=== PATIENT | male | born 1970 | race Caucasian/White ===

== ENCOUNTER 2021-10-30 06:55 | Emergency (ER) | payer MEDICARE, SELFPAY ==
[2021-10-30 06:57] VITALS: BP 149/107; PULSE 100; RESP 22; TEMP 36.7; O2SAT 97; BMI 41.1
[2021-10-30 07:08] VITALS: BP 149/107; PULSE 99; O2SAT 96
[2021-10-30 07:20] VITALS: BMI 41.1
[2021-10-30 07:30] VITALS: BP 137/96; PULSE 92; O2SAT 96
[2021-10-30 07:42] LABS: Chloride 100 mmol/L (98-107); Sodium 136 mmol/L (136-145)
[2021-10-30 07:43] LABS: Potassium 5.2 mmoL/L (3.5-5.1)
--- NOTE | 2021-10-30 07:43 | PC.NURSE ---
PT REQUESTING TO LEAVE, STATES I ONLY NEED FLUID PILLS. I'VE GOTTA GO, MY KIDS ARE CRYING EXPLAINED TO PT THAT LABS HAVE BEEN DRAWN, AWAITING RESULTS FOR ED MD TO EVALUATE PT. PT CONTINUES TO REQUEST TO LEAVE. DR. HOBBS AWARE, PT EDUCATED. CONTINUES TO REQUEST TO LEAVE. AMA FORM EXPLAINED, PT INSTRUCTED TO RETURN IF SYMPTOMS WORSEN. QUESTIONS ENCOURAGED AND ANSWERED. PT V/U. AMA FOR SIGNED
[2021-10-30 07:45] VITALS: BP 149/107; PULSE 100; RESP 22; TEMP 36.7; O2SAT 97
[2021-10-30 07:45] LABS: Alanine Aminotransferase 25 U/L (12-78); Albumin/Globulin Ratio 1.2 (1.1-1.8); Alkaline Phosphatase 104 U/L (38-126); Anion Gap 7.2 mEq/L (5-15); Aspartate Amino Transferase 41 U/L (17-59); Bilirubin,Total 1.3 mg/dl (0.2-1.3); Blood Urea Nitrogen 15 mg/dl (9-20); Carbon Dioxide 34 mmol/L (22.0-30.0); Creatinine Clearance Estimated 204 mL/min (50-200); Estimated Glomerular Filt Rate 90 ml/min (>60); GFR (African American) 109 ML/MIN (>60); Globulin 3.4 g/dL (1.3-3.2); Total Protein,Serum 7.4 g/dl (6.3-8.2)
[2021-10-30 07:46] LABS: Glucose 120 mg/dl (74-100)
[2021-10-30 07:51] LABS: Basophils # 0.2 K/mm3 (0-0.2); Basophils % 2.8 % (0.1-2.0); Eosinophils # 0.2 K/mm3 (0.0-0.4); Hematocrit 54.4 % (42.0-52.0); Hemoglobin 17.2 g/dL (14.1-18.0); Lymphocytes # 2.1 K/mm3 (0.7-4.5); Lymphocytes % 34.5 % (10-50); Mean Corpuscular HGB Conc 31.6 g/dL (31.8-35.4); Mean Corpuscular Volume 98.1 fl (80-94); Mean Platelet Volume 8.5 fl (7.4-10.4); Monocytes # 0.3 K/mm3 (0.1-1.0); Monocytes % 4.7 % (1.7-9.3); Neutrophils # 3.4 K/mm3 (1.8-7.8); Neutrophils % 54.9 % (37.0-80.0); Platelet Count 181 K/mm3 (142-424); Red Blood Count 5.55 M/mm3 (4.60-6.20); Red Cell Distribution Width 14.7 % (11.5-17.5); White Blood Count 6.1 K/mm3 (4.8-10.8)
[2021-10-30 07:58] LABS: Troponin I 0.05 ng/ml (0.00-0.034)
--- NOTE | 2021-10-30 07:58 | PC.NURSE ---
0712. LABS COLLECTED WITH IV START. PT TOLERATED WELL. POC EXPLAINED. PT REQUESTING BROTHER COME BACK, BROTHER NOTIFIED
== END 2021-10-30 07:45 | disposition left against medical advice (07) ==
LOC: ER 07:39
PROVIDERS: Emergency Provider Emergency Medicine
DX: Z53.21 Procedure and treatment not carried out due to patient leaving prior to being seen by health care provider (principal)
CPT/HCPCS: 80053; 84484; 85025; 99281

== ENCOUNTER 2022-02-21 11:51 | Inpatient (IN) | payer MEDICARE, SELFPAY ==
[2022-02-21] VITALS (10 sets, daily range): BP systolic 118–173; BP diastolic 82–116; PULSE 78–110; RESP 14–24; TEMP 36.8–37.3; O2SAT 94–100; BMI 42.8; BMI 43.3
--- NOTE | 2022-02-21 11:48 | ECG_ITS ---
APPROVED REPORT Exam: Resting ECG HR:106 bpm ECG Measurements Heart Rate 106 AXES RI 134 P 23 QRSd 213 QRS 248 QT 411 T 75 QTc 473 Conclusion ELECTRONIC VENTRICULAR PACEMAKER ABNORMAL RHYTHM ECG UNCONFIRMED REPORT Electronically signed by : Gary Yeboah MD 02/21/2022 19:54:26
--- NOTE | 2022-02-21 12:00 | XR_ITS ---
FINAL REPORT TECHNIQUE: Single view chest CLINICAL HISTORY: SOA FINDINGS: A single view of the chest was obtained. There is a left subclavian ICD in place. The heart is enlarged. There is for a vascular congestion. Right base atelectasis or pneumonia is seen. There is no pneumothorax. Osseous structures are unremarkable. IMPRESSION: Right base atelectasis or pneumonia. Reviewed, Interpreted and Dictated by Bhavik Wood III, MD Transcribed by Amna Martinez Authenticated and [facility]
--- NOTE | 2022-02-21 12:07 | PC.NURSE ---
OBDULIO ODWD at for patient eval
[2022-02-21 12:08] LABS: Basophils # 0.1 K/mm3 (0-0.2); Basophils % 1.1 % (0.1-2.0); Eosinophils # 0.2 K/mm3 (0.0-0.4); Eosinophils % 1.8 % (0.1-12.0); Hematocrit 50.6 % (42.0-52.0); Hemoglobin 16.5 g/dL (14.1-18.0); Lymphocytes # 2.6 K/mm3 (0.7-4.5); Lymphocytes % 31.3 % (10-50); Mean Corpuscular HGB Conc 32.7 g/dL (31.8-35.4); Mean Corpuscular Hemoglobin 29.7 pg (27.0-31.2); Mean Corpuscular Volume 90.8 fl (80-94); Mean Platelet Volume 8.2 fl (7.4-10.4); Monocytes # 0.3 K/mm3 (0.1-1.0); Monocytes % 3.8 % (1.7-9.3); Neutrophils # 5.3 K/mm3 (1.8-7.8); Platelet Count 270 K/mm3 (142-424); Red Blood Count 5.57 M/mm3 (4.60-6.20); Red Cell Distribution Width 15.4 % (11.5-17.5); White Blood Count 8.5 K/mm3 (4.8-10.8)
--- NOTE | 2022-02-21 12:08 | PC.NURSE ---
OBDULIO DOWD at
[2022-02-21 12:13] LABS: Chloride 99 mmol/L (98-107); Sodium 139 mmol/L (136-145)
[2022-02-21 12:14] LABS: Potassium 3.9 mmoL/L (3.5-5.1)
[2022-02-21 12:16] LABS: Alanine Aminotransferase 19 U/L (12-78); Albumin Level 4.1 g/dl (3.5-5.0); Albumin/Globulin Ratio 1.1 (1.1-1.8); Alkaline Phosphatase 129 U/L (38-126); Anion Gap 8.9 mEq/L (5-15); Aspartate Amino Transferase 32 U/L (17-59); Bilirubin,Total 0.9 mg/dl (0.2-1.3); Blood Urea Nitrogen 10 mg/dl (9-20); Carbon Dioxide 35 mmol/L (22.0-30.0); Creatinine Clearance Estimated 112 mL/min (50-200); Estimated Glomerular Filt Rate 90 ml/min (>60); GFR (African American) 109 ML/MIN (>60); Globulin 3.9 g/dL (1.3-3.2)
[2022-02-21 12:17] LABS: Calcium 9.3 mg/dl (8.4-10.2); Glucose 112 mg/dl (74-100)
--- NOTE | 2022-02-21 12:27 | PC.NURSE ---
notified RT have green top in ER for vbg
[2022-02-21 12:28] LABS: Troponin I 0.03 ng/ml (0.00-0.034)
[2022-02-21 12:35] LABS: Lactic Acid 1.4 mmol/L (0.7-2.1)
[2022-02-21 12:36] LABS: C-Reactive Protein 30.4 mg/L (0-4)
[2022-02-21 12:39] LABS: VBG HCO3 26.1 mmol/L (23-30); VBG Oxygen Saturation 70.8 % (50-70); VBG PCO2 45.1 mmol/L (35-51); VBG PH 7.38 mmol/L (7.31-7.41); VBG Total CO2 27.5 mmol/L (23-27)
[2022-02-21 12:41] LABS: NT Pro Brain Natriuretic Pep. 1990 pg/mL (0-125)
--- NOTE | 2022-02-21 13:11 | PC.NURSE ---
call light within reach, pt given water (okayed per OBDULIO DOWD), pt resting in bed
--- NOTE | 2022-02-21 13:52 | PC.NURSE ---
pt sitting in recliner at this time for comfort. warm blanket given. Pt has call light in his lap
--- NOTE | 2022-02-21 14:40 | PC.NURSE ---
contacted dietary for meal tray for pt, okayed per ER MD
--- NOTE | 2022-02-21 14:56 | PC.NURSE ---
Received labs from [facility] and given to OBDULOI DOWD
[2022-02-21 15:43] LABS: Troponin I 0.03 ng/ml (0.00-0.034)
--- NOTE | 2022-02-21 16:20 | PC.NURSE ---
notified ER MD of pt uop at this time and that pt is still hypertensive and tachycardic no new orders at this time.
[2022-02-21 17:31] LABS: Coronavirus 19, PCR Not Detected (NotDetected); Influenza A, PCR Not Detected (NotDetected); Influenza B, PCR Not Detected (NotDetected)
--- NOTE | 2022-02-21 17:34 | PC.NURSE ---
contacted [facility] pharmacy for pt medication list as pt unable to state any of his medication names. pharmacist states has not filled any prescriptions since november for pt, states only the Bumex was a 90 day supply Confirmed with pt, states he does miss a lot of his medication doses. States he has not taken any of his medications today. Medications filled at [facility] in november: Bumex 1mg daily and prn Coreg 6.25mg BID Entresto BID Lipitor 40mg daily Imdur 30 mg daily
--- NOTE | 2022-02-21 17:49 | PC.NURSE ---
notified lodging house keeper pt will be an admit, but will be after shift change r/t dr. xiao requested ER MD call back after shift change to admit pt.
--- NOTE | 2022-02-21 17:52 | PC.NURSE ---
ER at discussing POC and results with pt
--- NOTE | 2022-02-21 18:42 | PC.NURSE ---
pt recieved supper tray and is sitting up in chair eating, watching tv at this time
--- NOTE | 2022-02-21 19:19 | HMH.EDSOB ---
Discharge Plan Disposition Chief Complaint: Shortness of Breath/Dyspnea Prescriptions Prescriptions: No Action Unobtainable Rx Instructions: SEE NURSING NOTE R/T LAST PRESCRIPTIONS FILLED FOR PT IN AT [facility]. Referrals Follow up/Referrals: Provider,Referral, [Primary Care Provider] - See instructions Clinical Impressions Clinical Impression: CHF exacerbation, Pneumonia Discharge ED Provider: Campos Sosa Resp/SOB HPI General Chief Complaint: Shortness of Breath/Dyspnea Stated Complaint: SOA; fall Time Seen by Provider: 02/21/22 12:00 Mode of Arrival: EMS Source of Information: Patient Limitations: No Limitations Description of Symptoms (Recalled from ER Triage Doc. by RN): Pt c/o SOA for 2 days. Pt states no increased swelling noted, 1+ edema noted in BLE. Pt reports cardiac hx, has a pacemaker/defibrilator, previously saw cardiology at [facility]. Per EMS pt was given a duoneb in route. History of Present Illness Patient is a 51-year-old male with a past medical history of heart failure, hypertension, diabetes, hyperlipidemia who presents with concern for shortness of breath. He says that for the last 2 days has gotten progressively worsening shortness of breath. He says that his legs are swelling as well. He says that he is substantial cardiac history and normally sees cardiology at [facility]. He says he has not followed up on any appointments because he has been taking care of his children. He also says that he has not been able to take his medications because of his need to take care of his kids. He says that his shortness of breath is worse when he lies flat. He denies any sputum production. He says that he has had a substantial cough. He denies any chest pain. He says that he thinks he is on some blood thinner but cannot remember it. Related Data Home Medications Medication Instructions Recorded Confirmed Unobtainable 02/21/22 02/21/22 Allergies Allergy/AdvReac Type Severity Reaction Status Date / Time No Known Allergies Allergy Verified 10/30/21 07:32 [facility] Disclaimer: The information contained in this section may have been updated after the patient was seen, as this information can be updated by other users. Medical History (Updated 02/21/22 @ 19:24 by Campos Sosa MD) Hypertension Pacemaker Social History Smoking Status: Current every day smoker alcohol intake: current current occupational status: employed Travel in the last 8 weeks: None ROS Obtained: Yes All systems reviewed & no additional complaints except as documented A 14 point review of system was obtained and otherwise negative except per HPI Physical Exam General General appearance: alert and in no apparent distress Head Head exam: atraumatic, normocephalic and normal inspection Eye Eye exam: Present normal appearance, PERRL and EOMI ENT ENT exam: Present normal exam, normal oropharynx, mucous membranes moist, TM's normal bilaterally and normal external ear exam Neck Neck exam: Present normal inspection, full ROM and trachea midline; Absent meningismus or lymphadenopathy Chest Chest inspection: Present normal inspection and symmetric chest wall rise; Absent tenderness Respiratory Respiratory exam: Present normal lung sounds bilaterally and accessory muscle use; Absent respiratory distress Expanded Respiratory Exam Location: Left: rales, Right: rales and Lower: rales Cardiovascular Cardiovascular exam: Present normal rhythm and tachycardia; Absent JVD Abdominal Exam Abdominal exam: Present soft and normal bowel sounds; Absent distention, tenderness or guarding Extremities Exam Extremities exam: Present normal inspection, full ROM, normal capillary refill and edema; Absent calf tenderness Back Exam Back exam: Present normal inspection; Absent tenderness Neurological Exam Neurological exam: Present alert and oriented X3 Psychiatric Psychiatric exam: P
--- NOTE | 2022-02-21 19:20 | PC.NURSE ---
shift change report given to diana mccracken and amarilisrn
--- NOTE | 2022-02-21 19:23 | PC.NURSE ---
notified rooming house inspector of admission
--- NOTE | 2022-02-21 20:07 | PC.NURSE ---
PT ARRIVED TO FLOOR AT THIS TIME VIA WHEELCHAIR
--- NOTE | 2022-02-21 20:24 | EXP.HP ---
History of Present Illness *Admission Date: 02/21/22 *Reason for visit:: Shortness of breath *History of present illness: This is a 51-year-old obese male with past medical history of CHF and hypertension, s/p cardioversion with AICD placement in May 2020 who presents emergency department today with complaints of orthopnea and dyspnea on exertion. He endorses poor medical compliance over the past several months and has been out of his medications namely Bumex, Coreg, Entresto, Lipitor, Imdur secondary to life stressors. He reports having to take care of his 2 kids and has been unable to get back and forth to his doctor. He endorses severe shortness of breath over the last several days with acutely worsening this afternoon. He also complains of cough and cold chills. He does endorse that his daughters had RSV last week but feels that he is not as sick as they have been. He denies any chest pain, syncope, palpitations. Emergency department work-up significant for clinically volume overloaded on exam. proBNP elevated at 1900. COVID flu negative. Chest x-ray with evidence of pneumonia versus atelectasis of the right base. He is oxygenating well on 2 L. He does report requiring CPAP at night although he has not had this in some time. He received Lasix IV in the emergency department with greater than 2 L urine output. Due to the above-mentioned complaints he will be admitted to the hospital service for further evaluation and management. [facility] Disclaimer: The information contained in this section may have been updated after the patient was seen, as this information can be updated by other users. Medical History Diabetes mellitus, type 2 History of pacemaker History of stroke Hypertension Pacemaker Family History (Updated 02/21/22 @ 21:14 by Do Segal RN) Family history of stroke Family history of cancer Family history of hypertension Family history of diabetes mellitus type II Family history of myocardial infarction Family history of hyperlipidemia Social History (Updated 02/21/22 @ 21:14 by Do Segal RN) Smoking Status: Current every day smoker alcohol intake: former current occupational status: disabled Travel in the last 8 weeks: None Review of Systems Constitutional Constitutional: Reports system reviewed and no additional complaints, except as documented Eyes Eyes: Reports system reviewed and no additional complaints, except as documented ENT Ears, Nose, Mouth, and Throat: Reports system reviewed and no additional complaints, except as documented *Cardiovascular Cardiovascular: Reports system reviewed and no additional complaints, except as documented *Respiratory Respiratory: Reports system reviewed and no additional complaints, except as documented *Gastrointestinal Gastrointestinal: Reports system reviewed and no additional complaints, except as documented *Genitourinary Genitourinary: Reports system reviewed and no additional complaints, except as documented *Musculoskeletal Musculoskeletal: Reports system reviewed and no additional complaints, except as documented Integumentary/Breasts Skin/Breast: Reports system reviewed and no additional complaints, except as documented *Neurologic Neurologic: Reports system reviewed and no additional complaints, except as documented Psychiatric Psychiatric: Reports system reviewed and no additional complaints, except as documented Endocrine Endocrine: Reports system reviewed and no additional complaints, except as documented Hematologic/Lymphatic Hematologic/Lymphatic: Reports system reviewed and no additional complaints, except as documented Allergic/Immunologic Allergic/Immunologic: Reports system reviewed and no additional complaints, except as documented Meds Home Medications and Allergies Home Medications Medication Instructions Recorded Confirmed Type atorvastatin 40 mg tablet 40 mg PO HS hy
[2022-02-22] VITALS (10 sets, daily range): BP systolic 116–145; BP diastolic 52–96; PULSE 83–98; RESP 16–21; TEMP 36.4–37.1; O2SAT 94–98
--- NOTE | 2022-02-22 06:06 | PC.NURSE ---
NO ACUTE CHANGES SINCE ARRIVING TO THE FLOOR. PT HAS RESTED WELL. REMAINS ON ROOM AIR. LUNG SOUNDS DIMINISHED. GETS SHORT OF BREATH WITH EXERTION. HE HAS HAD A NON-PRODUCTIVE COUGH. AMBULATING INDEPENDENTLY IN ROOM. NO C/O N/V/D OR CHEST PAIN. VSS. PACED ON TELE.
--- NOTE | 2022-02-22 07:13 | HMH.PHAINT1 ---
Pharmacy Intervention Comments: Medication reconciliation completed via 02/21 nursing note at 1734. No external fill history populated and patient reports noncompliance to medications. Updated home medication information with fills from November. -Mehnaz Barakat PharmD [employer] 2022
[2022-02-22 07:32] LABS: Basophils # 0.2 K/mm3 (0-0.2); Basophils % 1.7 % (0.1-2.0); Eosinophils # 0.2 K/mm3 (0.0-0.4); Eosinophils % 2.1 % (0.1-12.0); Hemoglobin 17.1 g/dL (14.1-18.0); Lymphocytes % 33.6 % (10-50); Mean Corpuscular HGB Conc 32.3 g/dL (31.8-35.4); Mean Corpuscular Hemoglobin 29.4 pg (27.0-31.2); Monocytes # 0.4 K/mm3 (0.1-1.0); Monocytes % 4.9 % (1.7-9.3); Neutrophils # 5.1 K/mm3 (1.8-7.8); Neutrophils % 57.7 % (37.0-80.0); Platelet Count 268 K/mm3 (142-424); Red Blood Count 5.82 M/mm3 (4.60-6.20); Red Cell Distribution Width 15.7 % (11.5-17.5); White Blood Count 8.8 K/mm3 (4.8-10.8)
[2022-02-22 07:36] LABS: Chloride 99 mmol/L (98-107); Sodium 139 mmol/L (136-145)
[2022-02-22 07:37] LABS: Potassium 4.1 mmoL/L (3.5-5.1)
[2022-02-22 07:39] LABS: Anion Gap 11.1 mEq/L (5-15); Blood Urea Nitrogen 12 mg/dl (9-20); Carbon Dioxide 33 mmol/L (22.0-30.0); Creatinine Clearance Estimated 98 mL/min (50-200); Estimated Glomerular Filt Rate 79 ml/min (>60); GFR (African American) 96 ML/MIN (>60)
[2022-02-22 07:40] LABS: Calcium 9.2 mg/dl (8.4-10.2); Chol/HDL Ratio 8.4 (1-3.5); Cholesterol 176 mg/dl (140-200); Glucose 119 mg/dl (74-100); HDL Cholesterol 21 mg/dl (40-60); Magnesium 2.2 mg/dl (1.6-2.3); Triglycerides 97 mg/dl (30-150); VLDL Cholesterol 19 mg/dL (0-40)
[2022-02-22 07:51] LABS: Direct LDL Cholesterol 105.47 mg/dL (100-129)
[2022-02-22 08:03] LABS: Hemoglobin A1C 6.1 % (4.0-6.0)
--- NOTE | 2022-02-22 10:24 | EXP.CARD.CON ---
History of Present Illness History of Present Illness Consult date: 02/22/22 Requesting physician: Jake Garcia Consult reason: congestive heart failure Chief complaint: shortness of breath Additional Medical History:: Significant past medical history: Chronic systolic heart failure AICD-possibly Biotronik Hypertension Diabetes Hyperlipidemia KARIN-noncompliant with CPAP Questionable coronary artery disease History of present illness: 51-year-old white male with above past medical history, presented to ER last night with complaints of dyspnea, orthopnea, cough and lower extremity edema x 2 days. Patient reports has known history of chronic systolic heart failure and has an AICD in place. States he thinks previously was followed by [facility] cardiology but doesn't know who. Patient reports has been out of medications for the past few months due to leaving him and his 2 children. States has not been able to make it to doctors appointments due to not having a vehicle and caring for his 2 children. Chest x-ray in ER showed right base atelectasis or pneumonia and patient was treated with IV Rocephin and azithromycin. Troponin was normal, BNP was 1990. Patient was given IV Lasix in ER and diuresed 2 L. Patient was admitted for volume overload and pneumonia. This morning reports overall feeling better. States his shortness of breath has improved, can lay flat now and lower extremity edema is resolving. Patient denies chest pain but states I was suppose to get my maker fixed years ago but I never did. Patient is a poor historian and is unable to give me details about previous cardiology care. [facility] Disclaimer: The information contained in this section may have been updated after the patient was seen, as this information can be updated by other users. Medical History (Updated 02/22/22 @ 10:39 by Humera Donnelly APRN) Diabetes mellitus, type 2 History of pacemaker History of stroke Hypertension Pacemaker Family History (Updated 02/21/22 @ 21:14 by Do Segal RN) Other Family history of cancer Family history of diabetes mellitus type II Family history of hyperlipidemia Family history of hypertension Family history of myocardial infarction Family history of stroke Social History (Updated 02/21/22 @ 21:14 by Do Segal RN) Smoking Status: Current every day smoker alcohol intake: former current occupational status: disabled Travel in the last 8 weeks: None Review of Systems Review of Systems Review of systems:: pertinent systems reviewed and negative unless documented below *Cardiovascular Cardiovascular: Reports chest pain, Reports dyspnea on exertion, Reports leg edema and Reports orthopnea *Respiratory Respiratory: Reports dyspnea on exertion *Neurologic Neurologic: Reports system reviewed and no additional complaints, except as documented Exam Data for Last 24 hours Vital signs and Labs for Last 24 Hours: Temp Pulse Resp BP Pulse Ox 97.8 F 98 H 20 142/90 H 98 02/22/22 08:00 02/22/22 08:00 02/22/22 08:00 02/22/22 08:00 02/22/22 08:00 Laboratory Results - last 24 hr 02/21/22 11:57: WBC 8.5, RBC 5.57, Hgb 16.5, Hct 50.6, MCV 90.8, MCH 29.7, MCHC 32.7, RDW 15.4, Plt Count 270, MPV 8.2, Neut % (Auto) 62.0, Lymph % (Auto) 31.3, [place] % (Auto) 3.8, Eos % (Auto) 1.8, Baso % (Auto) 1.1, Neut # (Auto) 5.3, Lymph # (Auto) 2.6, [place] # (Auto) 0.3, Eos # (Auto) 0.2, Baso # (Auto) 0.1 02/21/22 11:57: Sodium 139, Potassium 3.9, Chloride 99, Carbon Dioxide 35 H, Anion Gap 8.9, BUN 10, Creatinine 0.90, Estimated Creat Clear 112, Estimated GFR 90, Est GFR ( Amer) 109, Glucose 112 H, Calcium 9.3, Total Bilirubin 0.9, AST 32, ALT 19, Alkaline Phosphatase 129 H, Troponin I 0.03, Total Protein 8.0, Albumin 4.1, Globulin 3.9 H, Albumin/Globulin Ratio 1.1 02/21/22 11:57: Lactate 1.4 02/21/22 11:57: C-Reactive Protein 30.4 H, NT-Pro-B Natriuret Pep 1989 H 02/21/22 12:12: VBG pH 7.38,
--- NOTE | 2022-02-22 11:39 | CARE MANAGER ---
Heart Failure 2MN Trans ACUTE, One: Heart failure, acute on chronic, Both: Finding, >=One: Dyspnea, not returned to baseline after at least 1 dose of diuretic and >=2h treatment and, >=One: Clinical risk factor, >=One: Heart rate 100?120/min, sustained Intervention, >=One: Care Diuretic, >=One: Diuretic >=2 doses
--- NOTE | 2022-02-22 15:31 | EXP.ACUTE.PN ---
Subjective *Date: 02/22/22 *Time: 17:08 Interval history: Still feeling short of breath however feeling better after diuresis. Denies chest pain, nausea, vomiting. Frequent urination this morning after receiving Bumex. Would like to be home by tomorrow as his oldest daughter turns 10. Stable on room air. Tolerating oral medications. Medical Exam Vital signs and Labs for Last 24 Hours: Vital Signs Temp Pulse Pulse Pulse Resp BP BP 02/22/22 08:00 98 H 02/22/22 08:00 97.8 F 98 H 20 142/90 H 02/22/22 04:34 90 02/22/22 04:00 98.7 F 92 H 20 132/96 H 02/22/22 01:00 90 02/21/22 19:44 110 H 02/21/22 23:55 99.0 F 94 H 18 118/82 02/21/22 21:00 98.3 F 90 24 169/105 H 02/21/22 20:26 99.1 F 103 H 14 136/113 H 02/21/22 16:31 103 H 24 152/101 H 02/21/22 16:17 105 H 22 168/113 H Pulse Ox 02/22/22 08:00 98 02/22/22 08:00 98 02/22/22 04:34 02/22/22 04:00 98 02/22/22 01:00 02/21/22 19:44 02/21/22 23:55 97 02/21/22 21:00 100 02/21/22 20:26 02/21/22 16:31 95 02/21/22 16:17 94 L Intake and Output 02/21/22 02/22/22 02/22/22 23:59 07:59 15:59 Intake Total 960 / 960 Output Total 1450 / 2400 0 / 0 Balance -1450 / -2400 960 / 960 Intake: Intake, Oral Amount 960 / 960 Output: Output, Urine Amount 1450 / 2400 0 / 0 Other: Number of Voids 0 Number of Unmeasured Voids 1 1 Weight 148.37 kg Laboratory Results - last 24 hr 02/21/22 15:07: Troponin I 0.03 02/21/22 17:21: SARS-CoV-2 (PCR) Not detected, Influenza A Untype (PCR) Not detected, Influenza Type B (PCR) Not detected 02/22/22 06:58: WBC 8.8, RBC 5.82, Hgb 17.1, Hct 53.0 H, MCV 91.0, MCH 29.4, MCHC 32.3, RDW 15.7, Plt Count 268, MPV 8.0, Neut % (Auto) 57.7, Lymph % (Auto) 33.6, [place] % (Auto) 4.9, Eos % (Auto) 2.1, Baso % (Auto) 1.7, Neut # (Auto) 5.1, Lymph # (Auto) 3.0, [place] # (Auto) 0.4, Eos # (Auto) 0.2, Baso # (Auto) 0.2 02/22/22 06:58: Sodium 139, Potassium 4.1, Chloride 99, Carbon Dioxide 33 H, Anion Gap 11.1, BUN 12, Creatinine 1.00, Estimated Creat Clear 98, Estimated GFR 79, Est GFR ( Amer) 96, Glucose 119 H, Calcium 9.2, Magnesium 2.2, Triglycerides 97, Cholesterol 176, LDL Cholesterol Direct 105.47, VLDL Cholesterol 19, HDL Cholesterol 21 L, Cholesterol/HDL Ratio 8.4 H 02/22/22 06:58: Hemoglobin A1c 6.1 H I & O for Labs for Last 24 Hours: Intake & Output 02/19/22 02/20/22 02/21/22 02/22/22 23:59 23:59 23:59 23:59 Intake Total 960 / 960 Output Total 2400 / 2400 0 / 0 Balance -2400 / -2400 960 / 960 Weight 148.37 kg Constitutional: Present no acute distress, morbidly obese and cooperative Head: Present atraumatic and normocephalic ENT: Present normal exam Neck: Present normal inspection Respiratory: Present normal respiratory effort; Absent accessory muscle use, rhonchi, wheezes or crackles Cardiac: Present Reg Rate and Rhythm GI: Present soft and normal bowel sounds; Absent distention or tenderness Rectal (male): Present deferred Extremities: Present normal inspection and full ROM; Absent tenderness or edema Skin: Present intact; Absent erythema Neuro: Present Grossly Intact, alert, awake, oriented x 3 and moves all extremities Assessment and Plan *Assessment and plan (1) CHF exacerbation: Status: Acute Qualifiers: Heart failure type: unspecified Qualified Code(s): I50.9 - Heart failure, unspecified Category: Medical Code(s): I50.9 - Heart failure, unspecified (2) Pneumonia: Status: Acute Qualifiers: Laterality: right Lung location: lower lobe of lung Pneumonia type: due to unspecified organism Qualified Code(s): J18.9 - Pneumonia, unspecified organism Category: Medical Code(s): J18.9 - Pneumonia, unspecified organism (3) Hypertension: Status: Acute Qualifiers: Hypertension type: primary hypertension Qualified Cod
--- NOTE | 2022-02-22 18:05 | PC.NURSE ---
pt has rested most of shift, telemetry shows paced when pt is wearing it, has taken off several times this shift, no complaints of SOA or chest pain, remains on room air
--- NOTE | 2022-02-22 19:39 | CA_ITS ---
APPROVED REPORT EXAM: Comprehensive 2D, Doppler, and color-flow Echocardiogram Launch Operator: Noemi Potter CRT Ht: 6 ft 1 in Wt: 325lbs BSA: 2.64 BP: 152/101 mmHg Indications: Congestive Heart Failure, Diabetes, Obesity, Hyperlipidemia, Hypertension/HDD, pacer/defib, smoker 2D Dimensions LVOT 2.08 cm (M/F) 1.5-2.5 M-Mode Dimensions RVDd 3.13 cm (0.9-2.6) LA Diam 4.94 cm (1.9-4.0) LVDd 5.72 cm (3.5-5.7) Ao Diam 4.39 cm (2.0-3.7) LVDs 4.62 cm (3.5-5.7) IVSd 1.44 cm (0.6-1.1) PWd 1.78 cm (0.6-1.1) EF (Teich) 39.10% FS 19.20% EDV (Teich) 161.30 mL ESV (Teich) 98.30 mL Aortic Valve AO Peak GR. 2.70 mmHg Pulmonary Valve PV Peak Velocity 119.00 (50-150 cm/s) Tricuspid Valve TR P. Velocity 160.00 cm/s RAP Estimate 10.00 mmHg RVSP 20.20 mmHg Left Ventricle Technically difficult study because of the patient factors and poor acoustic windows, Definity contrast was utilized to delineate the endocardial surfaces. Left atrium is mildly enlarged, left ventricle is mildly dilated, there is severely reduced left ventricular systolic function, estimated ejection fraction 25%, there is marked hypokinesis involving mid to distal septum, anterior, anterior apical and apical wall, there is no left ventricular thrombus seen. Diastolic parameters are inconclusive. Right Ventricle Right atrium and right ventricle are mildly enlarged, contractility right ventricle is mildly reduced, there is an AICD lead seen in the right ventricle. Aortic Valve Aortic valve is minimally thickened and fibrosed there is no aortic stenosis or aortic insufficiency. Mitral Valve Mitral valve is grossly normal, there is mild mitral regurgitation. Tricuspid Valve Tricuspid valve is grossly normal, there is mild tricuspid regurgitation, tricuspid regurgitation jet velocity is inadequate for calculation of the right ventricular systolic pressure. Pulmonic Valve Pulmonic valve is poorly visualized. Great Vessels Aortic root is normal size. Inferior vena cava is poorly visualized. Pericardium No significant pericardial effusion noted. Conclusion 1. Technically difficult study as described above, Definity contrast was utilized to delineate the endocardial surfaces, dilated left ventricle, severe reduced left ventricular systolic function, estimated ejection fraction 25% with multiple segmental wall motion abnormality described above, there is no left ventricular thrombus seen. 2. Mildly enlarged right ventricle with mild reduced contractility. 3. Mild mitral and tricuspid regurgitation. 4. No significant pericardial effusion. 5. Inferior vena cava is poorly visualized. Electronically signed by : Dontae Rocha MD 02/23/2022 08:22:52
[2022-02-23 03:53] VITALS: BP 121/58; PULSE 88; RESP 16; TEMP 36.5; O2SAT 96
[2022-02-23 04:00] VITALS: PULSE 80
--- NOTE | 2022-02-23 04:32 | PC.NURSE ---
Pt aox4/ No c/o voiced to staff. Pt has slept majority of shift. Lung sounds diminished. Continues to tolerate RA well with sats mid 90s. NSR on tele. Call light within reach.
--- NOTE | 2022-02-23 04:34 | PC.NURSE ---
Pt aox4/ No c/o voiced to staff. Pt has slept majority of shift. Lung sounds diminished. Continues to tolerate RA well with sats mid 90s. Paced on tele. Call light within reach.
[2022-02-23 04:52] VITALS: BMI 42.1
--- NOTE | 2022-02-23 07:23 | EXP.DC.SUM ---
General Admission date:: 02/21/22 Discharge date: 02/23/22 HPI HPI HPI: This is a 51-year-old obese male with past medical history of CHF and hypertension, s/p cardioversion with AICD placement in May 2020 who presents emergency department today with complaints of orthopnea and dyspnea on exertion. He endorses poor medical compliance over the past several months and has been out of his medications namely Bumex, Coreg, Entresto, Lipitor, Imdur secondary to life stressors. He reports having to take care of his 2 kids and has been unable to get back and forth to his doctor. He endorses severe shortness of breath over the last several days with acutely worsening this afternoon. He also complains of cough and cold chills. He does endorse that his daughters had RSV last week but feels that he is not as sick as they have been. He denies any chest pain, syncope, palpitations. Emergency department work-up significant for clinically volume overloaded on exam. proBNP elevated at 1900. COVID flu negative. Chest x-ray with evidence of pneumonia versus atelectasis of the right base. He is oxygenating well on 2 L. He does report requiring CPAP at night although he has not had this in some time. He received Lasix IV in the emergency department with greater than 2 L urine output. Due to the above-mentioned complaints he will be admitted to the hospital service for further evaluation and management. Hospital Course Hospital Course Hospital Course: 51-year-old male admitted for CHF exacerbation secondary to nonadherence to medical regimen.? Responded well to diuresis overnight.? Cardiology consulted, appreciate their recommendations.? Problems addressed as follows: Acute on chronic systolic CHF CAD AICD present Essential hypertension Hyperlipidemia -Admitted for acute exacerbation of chronic systolic heart failure. Echo obtained showing results on 02/22 with an EF of 25% with mild MR and multiple segmental wall motion abnormalities. Records obtained from [facility] where he has had a BiV Biotron[employer] AICD implanted in April 2020. Last known EF documented prior to implant was 17%. Unable to get [employer] device rep available to interrogate during admission. Will have follow-up as an outpatient with cardiology and interrogate in the outpatient setting. Cardiology was consulted during admission. Appreciate their recommendations. Patient admitted to poor compliance to medications. Responded well to diuresis on admission. Resumed home regimen and tolerating well. Plan to continue regimen as follows: - Entresto 24/26 mg p.o. twice daily - carvedilol 6.25 mg p.o. twice daily - Bumex 1 mg p.o. daily. -Added Aldactone 25 mg p.o. daily and Jardiance 10 mg p.o. daily -Continue aspirin and high intensity statin. -Kidney function monitored during diuresis, remained stable with no RUBY. Electrolytes within a normal range. -Plan for close follow-up with cardiology for further eval of ischemic work-up. Patient also needs primary care, will refer to the [facility] as he lives in [place] to establish for PCP Prediabetes - A1C noted to be 6.1, this in addition to CV hx patient would benefit from use of ozempic but will defer to outpatient for possible initiation. Initiated on Jardiance prior to discharge. Pneumonia -Image findings with atelectasis versus pneumonia. Started on antibiotics. Will complete course of azithromycin and cefdinir. No oxygen requirement during admission. Patient stable for discharge home. Has 3 children he cares for, the oldest has a birthday today. Excited to get home to be with his children. Exam Data for Last 24 hours Vital signs and Labs for Last 24 Hours: Temp Pulse Resp BP Pulse Ox 97.7 F 80 16 121/58 L 96 02/23/22 03:53 02/23/22 04:00 02/23/22 03:53 02/23/22 03:53 02/23/22 03:53 Laboratory Results - last 24 hr 02/22/22 06:58: WBC 8.8, RBC 5.82, Hgb 17.1, Hct 53.0 H, MCV 91.0, MCH 29.4, MCHC
[2022-02-23 07:47] LABS: Chloride 102 mmol/L (98-107); Potassium 4.4 mmoL/L (3.5-5.1); Sodium 136 mmol/L (136-145)
[2022-02-23 07:50] LABS: Alanine Aminotransferase 17 U/L (12-78); Albumin Level 3.8 g/dl (3.5-5.0); Alkaline Phosphatase 119 U/L (38-126); Anion Gap 12.4 mEq/L (5-15); Aspartate Amino Transferase 33 U/L (17-59); Bilirubin,Total 0.8 mg/dl (0.2-1.3); Blood Urea Nitrogen 16 mg/dl (9-20); Calcium 9.3 mg/dl (8.4-10.2); Carbon Dioxide 26 mmol/L (22.0-30.0); Creatinine Clearance Estimated 109 mL/min (50-200); Estimated Glomerular Filt Rate 90 ml/min (>60); GFR (African American) 109 ML/MIN (>60); Globulin 3.7 g/dL (1.3-3.2); Glucose 114 mg/dl (74-100); Total Protein,Serum 7.5 g/dl (6.3-8.2)
[2022-02-23 08:00] VITALS: BP 123/87; PULSE 82; PULSE 92; RESP 16; TEMP 37.2; O2SAT 97
[2022-02-23 08:23] LABS: Basophils # 0.2 K/mm3 (0-0.2); Eosinophils # 0.2 K/mm3 (0.0-0.4); Eosinophils % 2.5 % (0.1-12.0); Hematocrit 51.9 % (42.0-52.0); Hemoglobin 17.2 g/dL (14.1-18.0); Lymphocytes # 3.6 K/mm3 (0.7-4.5); Lymphocytes % 43.1 % (10-50); Mean Corpuscular HGB Conc 33.2 g/dL (31.8-35.4); Mean Corpuscular Hemoglobin 30.1 pg (27.0-31.2); Mean Corpuscular Volume 90.8 fl (80-94); Mean Platelet Volume 8.4 fl (7.4-10.4); Monocytes # 0.5 K/mm3 (0.1-1.0); Monocytes % 5.4 % (1.7-9.3); Neutrophils % 47.2 % (37.0-80.0); Platelet Count 289 K/mm3 (142-424); Red Blood Count 5.71 M/mm3 (4.60-6.20); Red Cell Distribution Width 15.9 % (11.5-17.5); White Blood Count 8.4 K/mm3 (4.8-10.8)
--- NOTE | 2022-02-23 08:45 | EXP.CARD.PN ---
Subjective Subjective Date: 02/23/22 Time: 08:47 Principal diagnosis: Acute on chronic systolic heart failure, pneumonia Interval history: Patient reports feeling better today, still experiencing mild shortness of breath but greatly improved overall. Patient requesting to go home today states his son's birthday. Vitals remained stable. Had good urine output last night. Labs reviewed and unremarkable. Exam Data for Last 24 hours Vital signs and Labs for Last 24 Hours: Temp Pulse Resp BP Pulse Ox 98.9 F 82 16 123/87 97 02/23/22 08:00 02/23/22 08:00 02/23/22 08:00 02/23/22 08:00 02/23/22 08:00 Laboratory Results - last 24 hr 02/23/22 07:09: WBC 8.4, RBC 5.71, Hgb 17.2, Hct 51.9, MCV 90.8, MCH 30.1, MCHC 33.2, RDW 15.9, Plt Count 289, MPV 8.4, Neut % (Auto) 47.2, Lymph % (Auto) 43.1, [place] % (Auto) 5.4, Eos % (Auto) 2.5, Baso % (Auto) 2.0, Neut # (Auto) 4.0, Lymph # (Auto) 3.6, [place] # (Auto) 0.5, Eos # (Auto) 0.2, Baso # (Auto) 0.2 02/23/22 07:09: Sodium 136, Potassium 4.4, Chloride 102, Carbon Dioxide 26, Anion Gap 12.4, BUN 16 D, Creatinine 0.90, Estimated Creat Clear 109, Estimated GFR 90, Est GFR ( Amer) 109, Glucose 114 H, Calcium 9.3, Total Bilirubin 0.8, AST 33, ALT 17, Alkaline Phosphatase 119, Total Protein 7.5, Albumin 3.8, Globulin 3.7 H, Albumin/Globulin Ratio 1.0 L I & O for Last 24 hours: Intake & Output 02/20/22 02/21/22 02/22/22 02/23/22 23:59 23:59 23:59 23:59 Intake Total 1670 / 1670 Output Total 2400 / 2400 0 / 0 0 / 0 Balance -2400 / -2400 1670 / 1670 0 / 0 Weight 327 lb 1.6 oz 317 lb 12.8 oz Constitutional Constitutional: no acute distress *Routine Respiratory Exam Respiratory: Present CTA bilaterally and symmetric chest movement *Routine Cardiovascular Exam Cardiovascular: Present RRR, Normal S1 and Normal S2 *Routine Abdominal Exam Abdominal: Present soft and normoactive bowel sounds; Absent tenderness *Routine Extremities Exam Extremities: Present full ROM and normal capillary refill; Absent edema *Routine Skin Exam Skin: Present intact, dry and warm Detailed Neck Exam: Thyroids Thyroid: Absent bruit Progress Note: A&P Assessment and plan (1) CHF exacerbation: Status: Acute (2) Pneumonia: Status: Acute (3) Hypertension: Status: Acute (4) Hyperlipidemia: Status: Acute (5) AICD (automatic cardioverter/defibrillator) present: Status: Acute (6) Chronic systolic heart failure: Status: Acute (7) Class 3 obesity: Status: Acute Assessment and Plan Assessment and Plan for All Diagnoses:: Acute on chronic systolic heart failure status post AICD-NYHA IV on admission -Preliminary echo from 02/22/2022 shows an estimated EF of 20 to 25% with mild MR -No previous echoes available at this facility -Has been off of GDMT for a few months -Was given IV Lasix in ER yesterday and diuresed 2 L.? Symptoms have greatly improved -Restart home meds as follow: Entresto 24/26 mg p.o. twice daily, carvedilol 6.25 mg p.o. twice daily, Bumex 1 mg p.o. daily. -Add Aldactone 25 mg p.o. daily and Jardiance 10 mg p.o. daily -AICD in place possibly a Biotronik device.? We will attempt to get [employer] rep to evaluate device today. 02/23/2022: Records obtained from [facility]. Patient had BiV Biotronik AICD implanted 04/2020. Last known EF documented prior to implant was 17%. Official echo read from 02/22/2022 shows an EF of 25 with multiple segmental wall motion abnormalities noted. Unable to get [employer] device rep available to interrogate device. We will following up as outpatient. Questionable coronary artery disease with CCS of II -Patient denies symptoms of chest pain currently. Reports has mild chest pain intermittently with exertion at home. Denies pain at rest. -Casually states was told has a maker that needs fixed years ago but never did -Troponin negative on this admission -EKG negative for acute ischemic changes -Giv
--- NOTE | 2022-02-23 11:44 | P.CONPHA_ITS ---
Pharmacy Intervention Comments: Discharge counseling completed at bedside with the patient. Discussed new medications and continued medications with new refills at clinic pharmacy. Overviewed indication and possible side effects/mitigation strategies for each new medication. Emphasized importance of adherence to the patient and he ve rbalized his understanding. Patient has no questions or concerns at this time.
--- NOTE | 2022-02-24 13:18 | CARE MANAGER ---
Attempted post-discharge phone interview, no answer.
== END 2022-02-23 12:50 | disposition home or self-care (01) | DRG 291 ==
LOC: ER 12:22 → 2ND 19:34
PROVIDERS: Nurse Practitioner Acute Care; Admitting Provider Family Medicine; Emergency Provider Student in an Organized Health Care Education/Training Program; Visit Provider Internal Medicine Adolescent Medicine
DX: I11.0 Hypertensive heart disease with heart failure (principal); I50.23 Acute on chronic systolic (congestive) heart failure; J18.9 Pneumonia, unspecified organism; Z68.41 Body mass index [BMI] 40.0-44.9, adult; E78.5 Hyperlipidemia, unspecified; Z95.810 Presence of automatic (implantable) cardiac defibrillator; E66.01 Morbid (severe) obesity due to excess calories; Z91.138 Patient's unintentional underdosing of medication regimen for other reason
CPT/HCPCS: 36415; 71045; 80048; 80053; 80061; 82803; 83036; 83605; 83735; 83880; 84484; 85025; 86140; 87040; 93005; 93306; 99285; C9803; J0456; J0696; Q9957; U0003; U0005